=== PATIENT | female | born 1950 | race Caucasian/White ===

== ENCOUNTER → 2017-03-25 | Outpatient (CLI) | payer OTHER, BC ==
[~2017-03-25] MED LIST: ALBU1AER9 INH; ALEN1TAB21 PO; HYDR-5688 PO; MULT-506 PO; VITAMIN D PO
--- NOTE | 2017-03-25 12:57 | MAMMOGRAPHY REPORT ---
BILATERAL DIGITAL SCREENING MAMMOGRAM WITH CAD: 03/25/2017 CLINICAL HISTORY: Routine screening. Patient has no complaints. TECHNIQUE: Bilateral CC and MLO views were obtained. Current study was also evaluated with a Comput er Aided Detection (CAD) system. COMPARISON: Comparison is made to exams dated: 03/21/2016 mammogram, 03/07/2015 mammogram, 03/07/2015 ul trasound, 02/20/2015 mammogram, 12/29/2013 mammogram, and 12/22/2012 mammogram - [facility]. BREAST COMPOSITION: The tissue of both breasts is heterogeneously dense, which may obscure small ma sses. FINDINGS: There is a 8mm nodular asymmetry in the superior middle one third of the left breast, onl y seen on the MLO view, for which additional spot compression tomosynthesis views and possibly ultra sound are recommended. A 6 mm focal asymmetry in the posterior retroareolar right breast is increas ingly conspicuous. Although it could represent normal overlapping fibroglandular tissue, additional spot compression tomosynthesis views and possibly ultrasound are recommended. There are scattered benign round benign calcifications in the breasts. Mild vascular calcification. No other suspicious mass, architectural distortion or cluster of microcalcifications is seen bilate rally. IMPRESSION: ACR BI-RADS CATEGORY 0: INCOMPLETE EVALUATION: NEED ADDITIONAL IMAGING EVALUATION The bilateral asymmetries need additional imaging evaluation. The patient will be called to schedule an appointment. Approximately 10% of breast cancers are not detected with mammography. A negative mammographic repor t should not delay biopsy if a clinically suggestive mass is present. Magdalene Quinones M.D. ay/:03/25/2017 08:08:57 Fax Machine Operator: Rosetta Collazo RT(R)(M), [facility] letter sent: Addl Imaging 0 BI-RADS Code: ACR BI-RADS Category 0: Incomplete Evaluation: Need Additional Imaging Evaluation
== END | disposition home or self-care (01) ==
LOC: C.MAMM 07:36
PROVIDERS: ATTEND Obstetrics & Gynecology
DX: Z12.31 Encounter for screening mammogram for malignant neoplasm of breast (principal); N64.9 Disorder of breast, unspecified

== ENCOUNTER → 2017-04-01 | Outpatient (CLI) | payer OTHER, BC ==
--- NOTE | 2017-04-01 15:47 | MAMMOGRAPHY REPORT ---
BILATERAL DIGITAL DIAGNOSTIC MAMMOGRAM TOMOSYNTHESIS AND TARGETED BILATERAL ULTRASOUND: 04/01/2017 CLINICAL HISTORY: Callback from screening mammogram for bilateral asymmetries. TECHNIQUE: Breast tomosynthesis in addition to standard 2D mammography was performed. Spot ashlie enriqueta right CC and MLO 2-D and tomosynthesis images and spot compression left MLO 2-D and tomosynthes is images were obtained. COMPARISON: Comparison is made to exams dated: 03/25/2017 mammogram, 03/21/2016 mammogram, 03/07/2015 m ammogram, 03/07/2015 ultrasound, 02/20/2015 mammogram, and 12/29/2013 mammogram - [facility]. BREAST COMPOSITION: The tissue of both breasts is heterogeneously dense, which may obscure small ma sses. FINDINGS: The previously described nodular asymmetry seen within the right retroareolar/12:00 breas t effaces to a baseline appearance on the additional views, and has the appearance of normal fibrogl andular tissue on the tomosynthesis images. No suspicious mass or architectural distortion is noted in this region on the additional views. The asymmetry within the left superior breast also effaces on the additional views, and has the appearance of normal fibroglandular tissue on the tomosynthesi s images. A circumscribed oval 5 mm mass seen within the left superior breast is stable compared to multiple prior exams including the 2010 exam, and was shown to represent a benign cyst on a prior u ltrasound exam. Targeted ultrasound was performed of the right subareolar/12:00 periareolar breast in the region of the mammographic asymmetry, which shows mild benign duct ectasia without evidence of a mass or other suspicious sonographic abnormality. Targeted ultrasound of the left slightly superior breast in th e region of the other asymmetry demonstrates no suspicious masses or other suspicious sonographic ab normalities. An oval circumscribed anechoic 5 x 4 mm mass is seen within the left breast at 11:30 t o 12:00, 3 cm from the nipple; this corresponds with the stable mammographic mass and is consistent with a benign cyst. IMPRESSION: ACR BI-RADS CATEGORY 2: BENIGN, TARGETED ULTRASOUND ACR BI-RADS CATEGORY 2: BENIGN Bilateral asymmetries efface on the additional views, without corresponding suspicious sonographic a bnormality evident. Findings are benign and compatible with normal fibroglandular tissue. There is no mammographic or targeted sonographic evidence of malignancy. A 1 year screening mammogram is rec ommended. The patient has been verbally notified of the results. Approximately 10% of breast cancers are not detected with mammography. A negative mammographic repor t should not delay biopsy if a clinically suggestive mass is present. Lazara Brian M.D. ah/:04/01/2017 14:03:42 Applied Technologist: Mayra Patel RT(R)(M), [facility] letter sent: Normal 1/2 BI-RADS Code: ACR BI-RADS Category 2: Benign Ultrasound BI-RADS: ACR BI-RADS Category 2: Benign
== END | disposition home or self-care (01) ==
LOC: C.MAMM 13:11
PROVIDERS: ATTEND Obstetrics & Gynecology
DX: N64.89 Other specified disorders of breast (principal)

== ENCOUNTER → 2017-04-02 | Outpatient (CLI) | payer OTHER, BC ==
--- NOTE | 2017-04-02 08:14 | DIAGNOSTIC IMAGING REPORT ---
MRI OF THE RIGHT KNEE WITHOUT CONTRAST CLINICAL HISTORY: Medial right knee pain. Evaluate for meniscal tear. COMPARISON STUDY: None. TECHNIQUE: Utilizing a 1.5 Olga Lidia magnet and dedicated coil, multiplanar, multiecho imaging of the right knee was performed without intravenous or intraarticular contrast. FINDINGS: Alignment of the right knee is anatomic. Extensor mechanism is intact. There is no fracture or suspicious marrow replacement. There is moderate subchondral signal abnormality within the medial aspect of the patella with moderate overlying chondrosis. There is mild chondrosis of the trochlear cartilage. Note is made of mild to moderate chondrosis within the medial compartment and minimal chondrosis within the lateral compartment. There is an oblique tear of the body and posterior horn of the medial meniscus. There is also an oblique tear of the body and posterior horn of the lateral meniscus. No mass or fluid collection is shown. The anterior and posterior cruciate ligaments are intact. The medial collateral ligament and lateral collateral ligament complex are also intact. IMPRESSION: 1. Oblique tear of the body and posterior horn of the medial meniscus. 2. Oblique tear of the body and posterior horn of the lateral meniscus. 3. Mild to moderate chondrosis within the medial and patellofemoral compartments with subchondral signal abnormality within the patella. 4. Intact cruciate and collateral ligaments. Electronically signed by: Rocky Viveros M.D. 04/02/2017 8:13 AM Dictated Date/Time: 04/02/2017 8:08 AM
== END | disposition home or self-care (01) ==
PROVIDERS: ATTEND Orthopaedic Surgery
DX: S83.281A Other tear of lateral meniscus, current injury, right knee, initial encounter (principal); S83.241A Other tear of medial meniscus, current injury, right knee, initial encounter; M25.561 Pain in right knee; M11.261 Other chondrocalcinosis, right knee; X58.XXXA Exposure to other specified factors, initial encounter

== ENCOUNTER → 2017-04-07 | Outpatient (CLI) | payer OTHER, BC | END | disposition home or self-care (01) | LOC: C.CPL 08:47 | PROVIDERS: ATTEND Orthopaedic Surgery | DX: S83.241A Other tear of medial meniscus, current injury, right knee, initial encounter (principal); X50.9XXA Other and unspecified overexertion or strenuous movements or postures, initial encounter; Z01.810 Encounter for preprocedural cardiovascular examination ==

== ENCOUNTER → 2017-04-28 | Day surgery (SDC) | payer OTHER, BC ==
[2017-04-06 12:18] VITALS: Ht 152.4 cm; Wt 58.2 kg
[~2017-04-28] VITALS: Ht 152.4 cm; Wt 58.2 kg
[~2017-04-28] MED LIST changes: +ATROPINE SULFATE 0.1 MG/ML 5ML SYR IV PRN; +BUPIVACAINE 0.5 % 5 MG/1 ML PF 10ML VIAL ONE; +CEFAZOLIN 1000MG/55 ML D5W IV SCH; +EpHEDrine SULFATE 50MG/5ML SYR ONE; +EpHEDrine SULFATE INJ 50 MG/ML AMP IV PRN; +EpINEphrine INJ 1MG/ML AMP 1 MG/ML AMP ONE; +FENTANYL CITRATE INJ 50 MCG/1 ML 2 ML VIAL ONE; +KETOROLAC TROMETHAMINE 30 MG/ML VIAL ONE; +LACTATED RINGER'S 1000ML 1,000 ML IV SCH; +LIDOCAINE HCL 2% 2 ML VIAL (20MG/ML) ONE; +MIDAZOLAM HCL 1 MG/ML 2ML VIAL ONE; +ONDANSETRON INJ 2 MG/ML 2 ML VIAL IV PRN; +ONDANSETRON INJ 2 MG/ML 2 ML VIAL ONE; +OXYCODONE/ACETAMINOPHEN 5-325 TAB PO PRN; +PROPOFOL IV EMULSION 10 MG/ML 20 ML VIAL IV ONE; +ROPIVACAINE 0.5% 5 MG/ML 30 ML VIAL ONE; +SODIUM CHLORIDE 0.9% 1000ML 1,000 ML IV SCH
--- NOTE | 2017-04-28 08:52 | History & Physical Bridge - SC ---
H&P Re-Evaluation Bridge Note: I have examined the patient, reviewed the History & Physical and in the interval since the performance of the History & Physical I have noted the following changes of clinical significance: No changes noted
--- NOTE | 2017-04-28 10:34 | [facility] Post Operative Brief Note ---
Immediate Operative Summary Operative Date Apr 28, 2017. Pre-Operative Diagnosis Right knee medial meniscus tear Post-Operative Diagnosis Same as preop Procedure(s) Performed Right Knee Arthroscopy, Partial Medial Meniscectomy Surgeon Dr. Cowart Professional Nursing Assistant Surgeon(s) Surinder Marvin PA-C Estimated Blood Loss 0 mL Findings ABOVE Specimens None Drains NONE Anesthesia LMA Complication(s) None Disposition Recovery Room / PACU
--- NOTE | 2017-04-28 10:43 | Discharge Instructions-SurgCtr ---
Discharge Instructions Date of Service Apr 28, 2017. Visit Reason for Visit: Right Knee Medial Meniscus Tear, Pain Discharge Discharge Diagnosis / Problem: SAME ABOVE Discharge Goals Goal(s): Decrease discomfort, Improve function Activity Recommendations Activity Limitations: as noted below Lifting Limitations: gradually increase as tolerated Exercise/Sports Limitations: until after follow-up appointment Shower/Bathe: may shower/bathe in 3 days Anesthesia . Post Anesthesia Instructions: If you have had General Anesthesia or IV Sedation: * Do not drive today. * Resume driving when surgeon permits. * Do not make important decisions or sign legal documents today. * Call surgeon for: 1. Temperature elevations greater than 101 degrees F. 2. Uncontrollable pain. 3. Excessive bleeding. 4. Persistent nausea and vomiting. 5. Medication intolerance (nausea, vomiting or rash). * For nausea and vomiting use only clear liquids such as: tea, soda, bouillon until nausea subsides, then gradually increase diet as tolerated. * If you have any concerns or questions, call your surgeon's office. If physician is unavailable and it is an emergency, call 911 or go to the nearest emergency room. . Instructions / Follow-Up Instructions / Follow-Up MEDICATIONS: * Resume previous medications unless instructed otherwise by your surgeon. * Always take pain medication on a full stomach or with food to avoid upset stomach. * Do not drink alcohol or drive while taking narcotics. * Ibuprofen or Tylenol may be taken if narcotic not needed. SPECIAL CARE INSTRUCTIONS: __ None _X_ Keep extremity elevated and iced x 48 hours; apply ice 20-30 minutes 8-10 times/day. May remove at night. __ Crutches __ May discard when able __ Brace/Post-op shoe __ 24 hrs/day __ Remove at night _X_ Dressing __ Maintain until seen in office, may shower with plastic over site _X_ Remove dressings in 24-48 hours and then may shower _X_ Cover incisions with band-aids after showering __ Do not remove steri-strips Call physician if chills or temperature rises above 102 degrees or pain unrelieved by prescribed pain medications. Office [phone] Diet Recommendations Home Diet: resume previous diet Procedures Procedures Performed: Right Knee Arthroscopy, Partial Medial Meniscectomy Pending Studies Studies pending at discharge: no Medical Emergencies . Who to Call and When: Medical Emergencies: If at any time you feel your situation is an emergency, please call 911 immediately. . Non-Emergent Contact Non-Emergency issues call your: Primary Care Provider . . "Provider Documentation" section prepared by Surinder Marvin. .
[2017-04-28] MEDS: FENTANYL CITRATE INJ 50 MCG/1 ML 2 ML VIAL IV PRN ×2 (11:08→11:18)
[2017-04-28 11:55] VITALS: TEMP 36.5
--- NOTE | 2017-04-28 12:20 | Anesthesia Progress Nt - [facility] ---
Anesthesia Post Op Note Date & Time Apr 28, 2017 at 12:20 Vital Signs Pain Intensity: 3.0 Vital Signs Past 12 Hours Date Time Temp Pulse Resp B/P (MAP) Pulse Ox O2 Delivery O2 Flow Rate FiO2 04/28/17 12:15 71 16 111/72 (85) 97 Room Air 04/28/17 11:55 36.5 56 16 106/64 (78) 96 Room Air 04/28/17 11:41 106/60 04/28/17 11:38 37.0 56 16 106/60 96 Room Air 04/28/17 11:37 58 16 04/28/17 11:37 60 16 95 04/28/17 11:36 105/58 04/28/17 11:32 62 14 04/28/17 11:32 59 14 95 04/28/17 11:31 103/57 04/28/17 11:27 56 17 04/28/17 11:27 60 17 90 04/28/17 11:26 91/61 04/28/17 11:22 65 9 96 04/28/17 11:22 60 9 04/28/17 11:21 107/55 04/28/17 11:17 49 14 04/28/17 11:17 48 14 96 04/28/17 11:16 104/58 04/28/17 11:12 73 17 04/28/17 11:12 75 17 94 04/28/17 11:11 102/65 04/28/17 11:07 61 20 04/28/17 11:07 61 20 95 04/28/17 11:06 104/60 04/28/17 11:02 64 14 94 04/28/17 11:02 63 14 04/28/17 11:01 104/65 04/28/17 10:57 65 14 98 04/28/17 10:57 69 14 04/28/17 10:56 114/64 04/28/17 10:52 78 21 100 04/28/17 10:52 77 21 04/28/17 10:51 94/62 04/28/17 10:47 72 16 100 04/28/17 10:47 68 16 04/28/17 10:46 115/65 04/28/17 10:43 98/52 04/28/17 10:42 62 100 04/28/17 10:42 62 04/28/17 10:42 36.4 59 10 98/52 100 Diffusion Mask 6 04/28/17 08:37 36.4 66 22 122/78 (93) 99 Room Air Notes Mental Status: alert / awake / arousable, participated in evaluation Pt Amnestic to Procedure: Yes Nausea / Vomiting: adequately controlled Pain: adequately controlled Airway Patency, RR, SpO2: stable & adequate BP & HR: stable & adequate Hydration State: stable & adequate Anesthetic Complications: no major complications apparent
[2017-04-28 12:34] VITALS: BP 105/66; PULSE 63; O2SAT 96
--- NOTE | 2017-04-30 07:42 | OPERATIVE REPORT ---
DATE OF SURGERY: 04/28/17 PREOPERATIVE DIAGNOSES: 1. Medial meniscus tear, right knee. 2. 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 POSTOPERATIVE DIAGNOSES: 1. Medial meniscus tear, right knee. 2. 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 3. Lateral meniscus tear. PROCEDURE: 1. Right knee arthroscopy. 2. Partial medial meniscectomy. 3. Chondroplasty medial femoral condyle. 4. Small lateral meniscectomy. SURGEON: Dr. Cowart. RAILROAD WATCHMAN: Surinder Marvin PA-C ANESTHESIOLOGIST: Dr. Antunez. ANESTHESIA: LMA. DRAINS: None. COMPLICATIONS: None. CONDITION: The patient tolerated the procedure well and returned to the recovery room in apparent satisfactory condition. INDICATIONS FOR SURGERY: Nikia is a 66-year-old female who has had chronic right knee pain secondary to an injury consistent with meniscus tear. Physical examination, history, and MRI were consistent with that. We went over treatment options after she failed conservative care and elected to proceed with surgery. Procedure, expected outcomes, side effects, and risks were all explained in detail. DESCRIPTION OF PROCEDURE: Patient was to the OR at which time she was placed supine on the table and put to sleep by anesthesia department. Examination of the right knee was performed. Ligamentous call was stable. Went ahead and prepped and draped in usual sterile fashion. We began arthroscopic examination in the anteromedial and anterolateral portals. We found a flap tear of the posterior horn of the medial meniscus with some fraying of the inner edge of it also. We came in upbiting scissors and a full radius resector and trimmed it back to a stable rim. There were some degenerative changes to the medial femoral condyle mostly on the flexion surface about the size of a dime, grade 2 changes, and came in with the shaver and smoothed this down. The ACL was found. We found a small tear of the lateral meniscus. We came in with a shaver and trimmed this back. The articular surfaces looked good. Patellofemoral joint overall had little erosion on the underneath surface of the patella but everything else looked to be in pretty good shape. The knee was then copiously irrigated. All cannulas were removed. Portals were closed with 4-0 nylon sutures. 30 cc of Ropivacaine, 10 mg of Toradol, and 1 cc of epinephrine were placed in the knee joint. Placed in sterile dressing of Xeroform, 4 x 4, ABD, Sof-Rol, and Florencio bandage and returned back to recovery room in apparent satisfactory condition. SURGICAL FINDINGS: 1. Posterior horn medial meniscus tear. 2. Grade 2 - 2-1/2 DJD medial femoral condyle about the size of a dime of the flexion surface. 3. Small lateral meniscus tear.
== END | disposition home or self-care (01) ==
LOC: X.SURG 08:28
PROVIDERS: ATTEND Orthopaedic Surgery
DX: S83.241A Other tear of medial meniscus, current injury, right knee, initial encounter (principal); S83.281A Other tear of lateral meniscus, current injury, right knee, initial encounter; X58.XXXA Exposure to other specified factors, initial encounter

== ENCOUNTER → 2017-05-19 | Outpatient (CLI) | payer OTHER, BC ==
[~2017-05-19] MED LIST changes: -ATROPINE SULFATE 0.1 MG/ML 5ML SYR IV PRN; -BUPIVACAINE 0.5 % 5 MG/1 ML PF 10ML VIAL ONE; -CEFAZOLIN 1000MG/55 ML D5W IV SCH; -EpHEDrine SULFATE 50MG/5ML SYR ONE; -EpHEDrine SULFATE INJ 50 MG/ML AMP IV PRN; -EpINEphrine INJ 1MG/ML AMP 1 MG/ML AMP ONE; -FENTANYL CITRATE INJ 50 MCG/1 ML 2 ML VIAL ONE; -KETOROLAC TROMETHAMINE 30 MG/ML VIAL ONE; -LACTATED RINGER'S 1000ML 1,000 ML IV SCH; -LIDOCAINE HCL 2% 2 ML VIAL (20MG/ML) ONE; -MIDAZOLAM HCL 1 MG/ML 2ML VIAL ONE; -ONDANSETRON INJ 2 MG/ML 2 ML VIAL IV PRN; -ONDANSETRON INJ 2 MG/ML 2 ML VIAL ONE; -OXYCODONE/ACETAMINOPHEN 5-325 TAB PO PRN; -PROPOFOL IV EMULSION 10 MG/ML 20 ML VIAL IV ONE; -ROPIVACAINE 0.5% 5 MG/ML 30 ML VIAL ONE; -SODIUM CHLORIDE 0.9% 1000ML 1,000 ML IV SCH
[2017-05-19 11:04] LABS: BASO % 0.4 %; BASO ABS # 0.02 K/uL (0-0.2); COMPLETE YES; EOS % 2.1 %; HEMATOCRIT 42.4 % (37-47); IG% 0.2 %; LYMPH % 44.1 %; MEAN CELL VOLUME 95.9 fL (80-100); MEAN CORPUSCULAR HEMOGLOBIN 31.7 pg (25-34); MEAN PLATELET VOLUME 9.5 fL (7.4-10.4); NEUT % 47.2 %; PLATELET COUNT 233 K/uL (130-400); RED BLOOD COUNT 4.42 M/uL (4.2-5.4); WHITE BLOOD COUNT 5.21 K/uL (4.8-10.8)
[2017-05-19 11:14] LABS: ALT/SGPT 41 U/L (12-78); AST/SGOT 34 U/L (15-37); BLOOD UREA NITROGEN 23 mg/dl (7-18); BUN/CREATININE RATIO 30.3 (10-20); CALCIUM 9.1 mg/dl (8.5-10.1); CARBON DIOXIDE 28 mmol/L (21-32); CHLORIDE 109 mmol/L (98-107); CREATININE 0.76 mg/dl (0.60-1.20); GLUCOSE 96 mg/dl (70-99); POTASSIUM 4.2 mmol/L (3.5-5.1); SODIUM 140 mmol/L (136-145)
[2017-05-19 11:16] LABS: ALB/GLOB RATIO 1.1 (0.9-2); ALKALINE PHOSPHATASE 93 U/L (45-117)
[2017-05-19 11:26] LABS: URINE APPEARANCE CLEAR (CLEAR); URINE BILIRUBIN NEG (NEG); URINE COLOR YELLOW; URINE EPITHELIAL CELL AUTO 20-30 /lpf (0-5); URINE NITRITE NEG (NEG); URINE PH 5.5 (4.5-7.5); URINE SPECIFIC GRAVITY 1.023 (1.000-1.030); UROBILINOGEN NEG (NEG); ZZUR CULT IF INDIC CLEAN CATCH NO
[2017-05-19 11:28] LABS: MANUAL MICROSCOPIC REQUIRED? NO; REVIEW REQ? NO
== END | disposition home or self-care (01) ==
LOC: C.LABBC 08:23
PROVIDERS: ATTEND Internal Medicine
DX: I35.1 Nonrheumatic aortic (valve) insufficiency (principal); M81.0 Age-related osteoporosis without current pathological fracture

== ENCOUNTER → 2017-12-10 | Outpatient (CLI) | payer OTHER, BC ==
[~2017-12-10] MED LIST changes: -HYDR-5688 PO
--- NOTE | 2017-12-10 15:38 | DIAGNOSTIC IMAGING REPORT ---
CHEST 2 VIEWS ROUTINE HISTORY: 67 years-old Female R09.89 Lung [id number] Shortness of [id number] Productive cou acute shortness of breath with productive cough COMPARISON: Chest radiograph 08/09/2013, 09/10/2010, CTA of the chest 09/10/2010 TECHNIQUE: PA and lateral views of the chest FINDINGS: Cardiomediastinal and hilar silhouettes are within normal limits. Atherosclerosis of the aorta. Lungs are hyperinflated with diaphragmatic flattening. 8 mm ill-defined opacity projects over the right lung apex on the frontal view only. Lungs are otherwise clear and unremarkable without pneumothorax, pleural effusion, focal airspace consolidation or overt pulmonary edema. Sigmoidal scoliosis of the thoracolumbar spine. IMPRESSION: 1. No acute process of the chest. 2. 8 mm opacity projecting over the right upper lobe on the frontal view only is indeterminate and likely secondary to overlying composite tissue densities with adjacent lung markings and anterior right first rib. A pulmonary nodule could have a similar appearance. The above report was generated using voice recognition software. It may contain grammatical, syntax or spelling errors. Electronically signed by: Delroy Venegas M.D. 12/10/2017 3:37 PM Dictated Date/Time: 12/10/2017 3:32 PM
== END | disposition home or self-care (01) ==
LOC: C.RAD1850 15:18
PROVIDERS: ATTEND Internal Medicine
DX: R09.89 Other specified symptoms and signs involving the circulatory and respiratory systems (principal); R06.02 Shortness of breath; R05 Cough

== ENCOUNTER → 2018-02-15 | Outpatient (CLI) | payer OTHER, BC ==
[~2018-02-15] MED LIST changes: -ALEN1TAB21 PO; +ALEN35TA42 PO
--- NOTE | 2018-02-15 09:56 | DIAGNOSTIC IMAGING REPORT ---
(CHEST) THORAX WITHOUT CLINICAL HISTORY: PULMONARY NODULE ABNORMAL CHEST X RAY COMPARISON STUDY: Chest x-ray dated December 10, 2017, chest CT performed September 2010 CT DOSE: 164.18 mGy.cm TECHNIQUE: CT of the thorax was performed from the thoracic inlet to the lung bases. Images are reviewed in the axial, sagittal, and coronal planes. IV contrast was not administered for this examination. A dose lowering technique was utilized adhering to the principles of ALARA. FINDINGS: Thyroid: Imaged portions of the thyroid gland are normal in appearance. Thoracic aorta: There is mild ectasia of the ascending thoracic aorta which measures 38 mm. Heart: There is borderline cardiac enlargement Lungs and pleural spaces: No pleural effusions are visualized. There are dependent atelectatic changes present. No suspicious bony masses are visualized. CT scanning fails to confirm the presence of an 8 mm right apical pulmonary nodule. Mediastinum: There is no mediastinal lymphadenopathy. Digna: There is no evidence of pathologic hilar adenopathy given the limitations of a noncontrast study Axilla: There is no evidence of pathologic axillary lymphadenopathy Upper abdomen: There is a 4 mm left renal calculus. Skeletal structures: There are no lytic or blastic osseous lesions. IMPRESSION: 1. No suspicious pulmonary masses. CT scanning fails to confirm the presence of a right upper lobe pulmonary nodule 2. No evidence of pathologic adenopathy on this noncontrast study 3. Left-sided nephrolithiasis Electronically signed by: Hector Stevenson M.D. 02/15/2018 9:55 AM Dictated Date/Time: 02/15/2018 9:50 AM
== END | disposition home or self-care (01) ==
LOC: C.CTS 09:41
PROVIDERS: ATTEND Internal Medicine
DX: R93.8 Abnormal findings on diagnostic imaging of other specified body structures (principal)

== ENCOUNTER 2018-03-12 07:34 | Emergency (ER) | payer OTHER, BC ==
[~2018-03-12] VITALS: Ht 152.4 cm; Wt 60.9 kg
[2018-03-12 07:39] VITALS: BP 120/80; PULSE 66; TEMP 36.4; O2SAT 96; Ht 152.4 cm; Wt 60.9 kg
[2018-03-12] MEDS ORDERED: CEPHALEXIN MONOHYDRATE 250 MG CAP PO STA (07:52)
[2018-03-12] MEDS ORDERED: VNTHFA/IN INH (07:57)
[2018-03-12] MEDS ORDERED: CHOL1CAP PO (07:57)
[2018-03-12] MEDS ORDERED: CEPH500C PO (07:58)
--- NOTE | 2018-03-12 08:43 | EMERGENCY ROOM VISIT NOTE ---
History Report prepared by Gaby: Shantell Barrera Under the Supervision of: Dr. Jigar Griggs M.D. First contact with patient: 07:43 Chief Complaint: BITE Stated Complaint: SWELLING HAND/FOREARM FROM A BITE/STING? History of Present Illness The patient is a 67 year old female who presents to the Emergency Room with complaints of an episode of a bite occurring 20 hours ago. The patient states that she was at [employer] looking at plants when she felt something sting or bite her on her right hand. She states that she never saw whatever did it, but did feel it. She states that it looked like she had a stinger in her palm and her dug it out with a knife. She reports that it is painful more near her wrist. She reports that it has been itching and became swollen. She states that the swelling has started going up her arm this morning. The patient states that she has been taking Benadryl and using Benadryl cream with no relief. She reports that she has even tried wrapping a cold towel around it and holding an ice cube in her hand, but it has continued to worsen. She reports that her skin feels tight when she tries to make a fist. The patient denies fever and chills. The patient believes her tetanus is current. Source of History: patient Onset: 20 hours ago Position: hand (right) Quality: other (bite) Timing: other (episode) Associated Symptoms: No fevers, No chills Note: The patient complains of her arm itching and swelling. Review of Systems See HPI for pertinent positives & negatives. A total of 10 systems reviewed and were otherwise negative. Past Medical & Surgical Medical Problems: (1) Hx of varicose veins Surgical Problems: (1) H/O tubal ligation Family History CVA FH: HTN (hypertension) FH: diabetes mellitus FH: heart disease Social History Smoking Status: Never Smoker Drug Use: none Marital Status: Housing Status: lives with family Occupation Status: retired Current/Historical Medications Scheduled Alendronate Sodium (Alendronate Sodium), 35 MG PO WK Cephalexin Monohydrate (Keflex), 500 MG PO TID Cholecalciferol (Kp Vitamin D), 1,000 UNITS PO DAILY Multivitamin (Multivitamin), 1 TAB PO QAM Scheduled PRN Albuterol Hfa (Ventolin Hfa), 2 PUFFS INH DAILY PRN for Shortness of Breath Allergies Coded Allergies: Sulfamethoxazole w/Trimethoprim (Unverified Allergy, Unknown, RASH, ) Physical Exam Vital Signs Date Time Temp Pulse Resp B/P (MAP) Pulse Ox O2 Delivery O2 Flow Rate FiO2 03/12/18 07:39 36.4 66 20 120/80 96 Room Air Physical Exam GENERAL: Patient is in no acute distress. HEENT: No acute trauma, normocephalic atraumatic, mucous membranes moist, no nasal congestion, no scleral icterus. NECK: No stridor, no adenopathy, no meningismus, trachea is midline. LUNGS: Clear to auscultation bilaterally, no wheeze, no rhonchi, breath sounds equal. HEART: Without murmurs gallops or rubs, regular rate and rhythm. EXTREMITIES: A possible bite to the right mid palm with surrounding erythema extending up the volar wrist. There is some swelling in the same area. Some mild warmth is noted. No evidence for neurovascular compromise. No drainage. No obvious foreign body noted. NEUROLOGIC: Oriented x 3, no acute motor or sensory deficits, no focal weakness. SKIN: No jaundice, no diaphoresis. Medical Decision & Procedures Medications Administered Medications (Trade) Dose Ordered Sig/Fatoumata Route Start Time Stop Time Status Last Admin Dose Admin Cephalexin Monohydrate (Keflex Cap) 500 mg NOW STAT PO 03/12/18 07:52 03/12/18 07:53 DC 03/12/18 07:58 500 MG ED Course 0744: The patient was evaluated in room A10. A complete history and physical exam was performed. I discussed results and discharge instructions: She verbalized understanding and agreement. The patient is ready for discharge. 0752: Ordered Keflex Cap 500 mg PO. Medical Decision Differential diagnoses include insect bite or sting, cellulitis, foreign body, neurovascular compromise, allergic reaction. The patient believes she was bitten or stung yesterday by an insect. A stinger had been present but was removed by her . The patient states that the area itches and is swollen. She is concerned that it is worsening despite the use of cold compresses and some occasional Benadryl. She has not had fever or chills. The patient has a local reaction from what appears to be an insect bite or sting. I also am concerned there may be the start of cellulitis in the same area. The patient will continue the Benadryl on a more regular fashion, cool compresses and elevation have been recommended. The patient will be on Keflex as well. She was given 1 dose here prior to discharge. If worsening, she can return. Medication Reconcilliation Current Medication List: was personally reviewed by me Blood Pressure Screening Patient's blood pressure: Normal blood pressure Blood pressure disposition: Did not require urgent referral Impression Primary Impression: Insect sting Additional Impression: Cellulitis Scribe Attestation The scribe's documentation has been prepared under my direction and personally reviewed by me in its entirety. I confirm that the note above accurately reflects all work, treatment, procedures, and medical decision making performed by me. Departure Information Dispostion Home / Self-Care Prescriptions Cephalexin Monohydrate (Keflex) 500 Mg Cap 500 MG PO TID for 7 Days, #21 CAP Prov: Jigar Griggs M.D. 03/12/18 Referrals Nik Rockwell M.D. (PCP) Forms HOME CARE DOCUMENTATION FORM, IMPORTANT VISIT INFORMATION Patient Instructions My [facility] Additional Instructions benadryl 1-2 tab every 6 hours for next several days ice and elevation to help the swelling use keflex 3x per day for 1 week return for fever or worsening symptoms may use tylenol for pain if needed Problem Qualifiers
== END 2018-03-12 08:04 | disposition home or self-care (01) ==
LOC: C.EDB 07:36 → C.EDA 08:04
DX: S60.561A Insect bite (nonvenomous) of right hand, initial encounter (principal); W57.XXXA Bitten or stung by nonvenomous insect and other nonvenomous arthropods, initial encounter; L03.90 Cellulitis, unspecified

== ENCOUNTER 2019-08-23 06:23 | Inpatient (IN) ==
--- NOTE | 2019-07-13 09:37 | PAT Medication Instructions ---
Medication Instructions Date of Service July 13, 2019 Home Medications cholecalciferol (vitamin D3) 1,000 unit capsule 1,000 units PO QAM multivitamin tablet 1 tab PO QAM oxybutynin chloride ER 10 mg tablet,extended release 24 hr 10 mg PO QAM albuterol sulfate 1 puff INHALATION Q6H PRN biotin 1 cap PO QAM calcium carbonate [Calcium 500] 500 mg PO QAM STOP taking 2 weeks before surgery (or as soon as possible if surgery is within 2 weeks) biotin 1 cap PO QAM DO NOT take the morning of surgery cholecalciferol (vitamin D3) 1,000 unit capsule 1,000 units PO QAM multivitamin tablet 1 tab PO QAM oxybutynin chloride ER 10 mg tablet,extended release 24 hr 10 mg PO QAM calcium carbonate [Calcium 500] 500 mg PO QAM Take morning of surgery With a small sip of water, OTHERWISE NOTHING TO EAT OR DRINK AFTER MIDNIGHT: albuterol sulfate 1 puff INHALATION Q6H PRN (use if needed; please bring with you to hospital day of surgery if possible) Other Notes If you have any questions please call us at [phone] or [phone] or [phone] or [phone]
--- NOTE | 2019-07-14 08:33 | Anesthesiology Consultation ---
Date of Service July 14, 2019 Assessment & Plan (1) Encounter for pre-operative examination: Chart Review Chart Review: Pending: Refer to Additional Notes / Consult section (pending preop testing (labs, EKG)) and Patient seen in Pre Admission Testing Teaching & Discussion Pre-Anesthesia Teaching/Discussion Notes: Instructed NPO after midnight before surgery,except medications with 15 cc of water. Medication instructions provided according to the PAT guidelines. History Surgery Operation Date: 08/23/19 07:00 Proposed Procedures p Right Knee Arthroplasty Uni Compartment versus - Sonny Scott MD s Right Total Knee Replacement - Sonny Scott MD Height/Weight Height: 4 ft 11.5 in Weight: 59.3 kg Allergies Allergy/AdvReac Type Severity Reaction Status Date / Time Bactrim Allergy Unknown RASH Unverified 03/12/18 07:55 sulfamethoxazole Allergy Unknown RASH Verified 07/07/19 10:16 trimethoprim Allergy Unknown RASH Verified 07/07/19 10:16 Iodinated Contrast- Oral and AdvReac Severe rash Verified 07/07/19 10:16 IV Dye Medications Home Medications Medication Instructions Recorded Confirmed Last Taken cholecalciferol (vitamin D3) 1,000 1,000 units PO QAM 09/03/18 07/07/19 Unknown unit capsule multivitamin tablet 1 tab PO QAM 09/03/18 07/07/19 Unknown oxybutynin chloride ER 10 mg 10 mg PO QAM #30 tab 03/25/19 07/07/19 Unknown tablet,extended release 24 hr albuterol sulfate 1 puff INHALATION Q6H PRN 07/07/19 07/07/19 Unknown biotin 1 cap PO QAM 07/07/19 07/07/19 Unknown calcium carbonate [Calcium 500] 500 mg PO QAM 07/07/19 07/07/19 Unknown Past Medical History Medical History Hearing loss B/L ESTEVEZ Aneurysm of aortic arch per records, patient denies- no evidence of aneurysm on CTA 11/2018 [facility] Overactive bladder Osteoporosis Exercise-induced asthma stable Kidney stone Osteoarthritis Scoliosis Exercise / Class Metabolic Activity II 4-5 Yardwork/Stairs/Walk up hill Past Family History Family History Father Myocardial infarction Heart disease Hypertension Pure hypercholesterolemia Diabetes Interstitial lung disease of childhood Mother CHF (congestive heart failure) Brother Acute nephritis Past Surgical History Surgical History H/O varicose vein ligation H/O tubal ligation History of arthroscopy of right knee History of cataract surgery RIGHT/LEFT History of colonoscopy w/ polypectomy Past Anesthesia History No Family Hx of Anesthesia Complications and Other "Slow to wake." No known hx of reintubation. History of PONV No Hx of PONV and No Hx of Motion Sickness Social History Smoking Status: Never smoker Do You Dip or Chew Tobacco: No Hx Alcohol Use: Yes Alcohol type: beer, wine and hard liquor alcohol intake frequency: a few times a month Hx Substance Use: No substance use type: does not use Review of Systems Patient denies chest pain, shortness of breath, dyspnea on exertion, reflux, cough, wheezing, palpitations. Physical Exam Vital Signs VITALS BP 115/72 P 60 TEMP 97.9 SP02 97%RA RESP 16 PHYSICAL Full neck and c-spine range of motion. Full TMJ range of motion. TMD 3 finger breaths Mallampati Score 3 Dentition: intact, crowns on sides, permanent wire behind upper front teeth Lungs: clear throughout to auscultation Cardiac: regular rate and rhythm, no murmurs noted Spine: no obvious deformity Carotid arteries: negative bruit Extremities: no edema Testing Echocardiogram Date: 02/22/19 EF 55-60%. Mild AR. Trace to mild TR. No RWMA. Grade I DD. Cervical Spine Date: 11/24/18 The prevertebral soft tissues are normal. 2 mm of anterolisthesis of C4 on C5 is felt to be arthritic. There are degenerative changes most pronounced at the C5-6 and C6-7 levels. There is mild C5-6 and C6-7 foraminal encroachment due to uncinate spurring. No fractures are visualized. Degenerative changes most pronounced at the C5-6 and C6-7 levels. Other Testing Chest CTA: 11/23/18: No pneumothorax or pleural effusion. No focal airspace consolidation to suggest pneumonia. Minimal bibasilar atelectasis. There are no suspicious pulmonary nodules or masses identified. The central airways appear to be patent. Nonobstructing 4 mm calculus about the superior pole left kidney. No acute process of the imaged upper abdomen. Mild right hemidiaphragmatic elevation. Soft tissues and breast parenchyma appear unremarkable. Degenerative changes of the shoulders and spine. Mild levoscoliosis about the midthoracic spine. Multilevel spondylitic spurring with facet arthrosis and intervertebral disc space narrowing. No acute intrathoracic abnormality identified. Unremarkable CTA of the chest without aneurysm or dissection. Mild cardiomegaly.
[2019-07-14 10:27] LABS: Basophils # (auto) 0.02 K/uL (0-0.2); Basophils % (auto) 0.4 %; Eosinophils # (auto) 0.09 K/uL (0-0.5); Eosinophils % (auto) 1.9 %; Hematocrit (blood only) 39.8 % (37-47); Lymphocytes % (auto) 35.9 %; Mean Corpuscular Hemoglobin 31.7 pg (25-34); Mean Corpuscular Hgb Conc 32.7 g/dL (32-36); Mean Corpuscular Volume 97.1 fL (80-100); Mean Platelet Volume 9.3 fL (7.4-10.4); Monocytes # (auto) 0.44 K/uL (0.11-0.59); Monocytes % (auto) 9.3 %; Neutrophils # (auto) 2.49 K/uL (1.4-6.5); Neutrophils % (auto) 52.5 %; Platelet Count 203 K/uL (130-400); RDW Coefficient of Variation 12.8 % (11.5-14.5); RDW Standard Deviation 45.1 fL (36.4-46.3); White Blood Count 4.74 K/uL (4.8-10.8)
[2019-07-14 10:35] LABS: BUN Creatinine Ratio 23.4 (10-20); Calcium 8.9 mg/dl (8.5-10.1); Creatinine Clr Calc Pharmacy 50.3 ml/min; Est GFR (African American) 81.6; Est GFR (Non-African American) 70.4; Potassium 4.4 mmol/L (3.5-5.1)
[2019-07-14 10:39] LABS: Partial Thromboplastin Ratio 0.9; Partial Thromboplastin Time 24.8 Seconds (21.0-31.0); Prothrombin Time 10.7 Seconds (9.0-12.0)
--- NOTE | 2019-08-19 23:47 | History and Physical Report ---
DATE OF ADMISSION: 08/23/2019 CHIEF COMPLAINT: Persistent right medial knee pain and discomfort. HISTORY OF PRESENT ILLNESS: A 68-year-old white female who presents for followup and treatment of her persistent right medial knee pain. She has had a fairly long history of knee pain and discomfort and had her knee scoped by Dr. Cowart about 2 years ago. It really did not help her too much. She continues to be limited by localized pain in the medial side of her knee. She has been through extensive conservative treatment including various injections as well as oral medicines. She continues to be limited by this pain. It hurts her all the time. The more she walks, the more it hurts. She denies any groin pain. She would like to proceed with definitive treatment. PAST MEDICAL HISTORY: Significant for, 1. Sleep apnea. 2. Arthritis. 3. Kidney stones. PAST SURGICAL HISTORY: Include, 1. Tubal ligation. 2. Cataract surgery. 3. Right knee arthroscopy done on 04/28/2017. ALLERGIES: BACTRIM AND IV CONTRAST DYE. CURRENT MEDICATIONS: 1. Vitamin D. 2. Multivitamin. 3. Calcium. SOCIAL HISTORY: A 68-year-old female. She is . Does not smoke. No significant alcohol intake. FAMILY HISTORY: Noncontributory. REVIEW OF SYTEMS: Negative for diabetes, neurologic problems, vascular problems, or any bleeding disorders. Denies any chest pain or shortness of breath. No history of DVT or PE. No known bleeding problems. PHYSICAL EXAMINATION: GENERAL: Reveals a healthy, pleasant, middle-aged female. She looks to be in good health. HEENT: Benign. NECK: Supple, no lymphadenopathy. LUNGS: Clear to auscultation. HEART: Has a regular rate and rhythm. ABDOMEN: Soft, nontender, nondistended. EXTREMITIES: Grossly neurovascularly intact except as follows. Examination of the right knee reveals the patient ambulates independently. She has got slight varus alignment to her knee. She is tender over the medial joint line. Small knee effusion. Range of motion is 0-125. There is no instability. No pain with hip motion. ACL appears intact. IMAGING DATA: X-rays of the right knee were reviewed. It shows moderately advanced medial compartment DJD. She has got small osteophytes off the medial femoral condyle and medial tibial plateau. Narrowing of her joint space with some joint space remaining. No signs of AVN. MRI was also reviewed. It shows progressive medial compartment DJD compared to previous films. She has got a little bit of marrow edema in the medial tibial plateau. Degenerative changes of the meniscus consistent with a previous partial meniscectomy. ASSESSMENT: A 68-year-old white female 2 years out from right knee arthroscopy with persistent medial knee pain and progressive medial compartment arthritis. She has failed conservative treatment and would like to have more definitive treatment. PLAN: We talked about treatment options. We are going to proceed with a right partial knee replacement. If we get in there and her arthritis is too extensive, we will do a full knee replacement. The risks and benefits of partial and total knee replacement were explained to the patient and include, but not limited to, DVT, PE, , infection, neurological injury, vascular injury, bleeding problem, pain, limited range of motion, stiffness, failure to relieve symptoms, incomplete relief of symptoms, need for further surgery in the future, fracture, leg length inequality, nerve palsy, dislocation, and need for revision surgery. The patient understands and desires to proceed. Informed consent was obtained. As far as discharge plans, she is planning to be discharged to home. I will see her back 2 weeks postop.
[~2019-08-23 06:23] MED LIST changes: +ACETAMINOPHEN 500 MG TAB PO SCH; -ALBU1AER9 INH; -ALEN35TA42 PO; +BUPIVACAINE LIPOSOME/PF 266 MG, BUPIVACAINE/EPINEPHRINE 50 ML, SODIUM CHLORIDE 0.9% 30 ... INFIL SCH; +CEFAZOLIN 2000MG 2,000 MG/15 ML SYR IV SCH; +FAMOTIDINE 20 MG TAB PO SCH; +GABAPENTIN 300 MG CAP PO SCH; +LR 15ML/HR IV SCH; +LR 500ML BOLUS IV SCH; +LR 60ML/HR IV SCH; +METOCLOPRAMIDE HCL 10 MG TABLET PO SCH; -MULT-506 PO; -VITAMIN D PO
[2019-08-23] MEDS ORDERED: TRANEXAMIC ACID 1,000 MG **IV Intra-op IV SCH (06:30)
[2019-08-23] MEDS ORDERED: BUPIVACAINE 0.5 % 5 MG/1 ML PF 10ML VIAL ONE (06:30)
[2019-08-23] MEDS ORDERED: ROPIVACAINE 0.5% 5 MG/ML 30 ML VIAL ONE (06:30)
--- NOTE | 2019-08-23 06:51 | History & Physical Bridge Note ---
Date of Service August 23, 2019 History & Physical Bridge Note I have examined the patient, reviewed the History & Physical and in the interval since the performance of the History & Physical I have noted the following changes of clinical significance: no changes noted
[2019-08-23] MEDS ORDERED: MIDAZOLAM HCL 1 MG/ML 2ML VIAL ONE ×2 (07:21)
[2019-08-23] MEDS ORDERED: HYDROmorphone INJ 1 MG/ML SYRINGE IV PRN (08:23)
[2019-08-23] MEDS ORDERED: PHENYLEPHRINE 100MCG/ML 5ML SYR IV PRN (08:23)
[2019-08-23] MEDS ORDERED: KETOROLAC TROMETHAMINE 15 MG/ML VIAL IV PRN (08:23)
[2019-08-23] MEDS ORDERED: ATROPINE SULFATE 0.1 MG/ML 10ML SYR IV PRN (08:23)
[2019-08-23] MEDS ORDERED: ONDANSETRON INJ 2 MG/ML 2 ML VIAL IV PRN ×2 (08:23→11:53)
[2019-08-23] MEDS ORDERED: ePHEDrine sulfate 50 MG/ML AMP IV PRN (08:23)
[2019-08-23] MEDS ORDERED: SODIUM CHLORIDE 0.9% PF 50 ML VIAL ONE (08:30)
[2019-08-23] MEDS ORDERED: BUPIVACAINE LIPOSOME 1.3% 266 MG/20 ML VIAL ONE (08:30)
[2019-08-23] MEDS ORDERED: BACITRACIN INJ 50,000 UNIT VIAL ONE (08:30)
[2019-08-23] MEDS ORDERED: BUPIVACAINE/EPINEPHRINE 0.25% 1:200,000 30 ML VIAL ONE (08:30)
[2019-08-23] MEDS ORDERED: LIDOCAINE HCL 2% 2 ML VIAL/AMP(20MG/ML) INFIL ONE (08:58)
[2019-08-23] MEDS ORDERED: PROPOFOL IV EMULSION 10 MG/ML 20 ML VIAL IV ONE (08:58)
[2019-08-23] MEDS ORDERED: ONDANSETRON INJ 2 MG/ML 2 ML VIAL ONE (09:10)
--- NOTE | 2019-08-23 10:42 | Post Operative Brief Note ---
PG Immediate Post Op with CF Date of Surgery August 23, 2019 Pre & Post Diagnosis Operation Date: 08/23/19 08:50 Pre-Op Diagnosis: Right Knee Advanced Medial Compartment Degenerative Joint Disease Post-Op Diagnosis: Right Knee Advanced Medial Compartment Degenerative Joint Disease I identified the patient and participated in the time-out.: Yes Procedure Operation Date: 08/23/19 08:50 Actual Procedures p Right Knee Arthroplasty Uni-Compartmental(Right) - Sonny Scott MD Surgeon Sonny Sctot MD Audio Specialist Sal, PAC Estimated Blood Loss 25 Findings Consistent with Post-Op Diagnosis Fluids 1000 cc Specimens Specimen Description: A. Right knee bone and tissue. Drains Vogt Catheter (A 16 Maori vogt catheter was inserted by NEVILLE Riojas, without difficulty, clear yellow urine obtained, output to be monitored by An esthesia.) Anesthesia Type Spinal MAC Complications none Disposition Accompanied Patient To Recovery: No Disposition: Recovery Room
--- NOTE | 2019-08-23 11:49 | XRay Report ---
XR knee RT 2V routine CLINICAL HISTORY: Postoperative evaluation. COMPARISON: Knee radiographs June 16, 2019. FINDINGS: These images demonstrate expected findings following medial compartment right knee arthrop lasty. The hardware is intact. There is no fracture or unexpected radiopaque foreign body. Skin stapl es are present. IMPRESSION: Expected findings following right knee medial compartment arthroplasty. Electronically signed by: Rocky Viveros M.D. 08/23/2019 11:47 AM
--- NOTE | 2019-08-23 11:52 | Operative Report ---
DATE OF OPERATION: 08/23/2019 SURGEON: Sonny Scott MD SPORTS PSYCHOLOGIST: NEVILLE Badillo PREOPERATIVE DIAGNOSIS: Right knee medial compartment degenerative joint disease. POSTOPERATIVE DIAGNOSIS: Right knee medial compartment degenerative joint disease. PROCEDURE PERFORMED: Right knee Biomet [place] mobile bearing partial knee replacement. COMPLICATIONS: None. ESTIMATED BLOOD LOSS: 25 mL. FLUID REPLACEMENT: 1000 mL crystalloid fluid replacement. ANESTHESIA: Spinal with adductor canal block. DRAINS: None. SPECIMENS: Right knee sent for pathology. OPERATIVE INDICATIONS: The patient is a 68-year-old female who has had a several-year history of increasing right knee pain and discomfort. She has been through extensive conservative treatment. She had a right knee scoped by my partner a little over 2 years ago which provided fairly minimal short-term relief. Her symptoms localized in the medial side of her knee. X-rays and MRI showed progressive medial compartment arthritis. She failed conservative treatment and elected to proceed with partial knee replacement. OPERATIVE FINDINGS: Operative findings revealed advanced right knee medial compartment DJD. She did have grade 4 change of the medial femoral condyle and some focal of the medial tibial plateau. Her lateral and patellofemoral compartments were well preserved. A moderate-sized joint effusion. Slight varus deformity to her knee. Small osteophytes off the medial femoral condyle and medial tibial plateau. OPERATIVE IMPLANTS: Operative implants consisted of: 1. Biomet [place] size small femoral component. 2. A Biomet medial right size AA tibial tray. 3. A 3 mm mobile-bearing insert. OPERATIVE PROCEDURE: The patient was taken to the operating room, identified and placed on the operating table in supine position. All contact areas were appropriately padded. IV antibiotics were provided by anesthesia team. A spinal anesthetic and adductor canal block had been provided in the holding area. Davies catheter was placed in sterile fashion. Right thigh tourniquet was then placed and the right lower extremity was then prepped and draped in usual sterile fashion. The right leg was elevated and exsanguinated with an Esmarch and tourniquet was placed at 300 mmHg. An anterior approach of the right knee was then performed through a longitudinal incision beginning at the superior pole of the patella and extending just medial to the tibial tubercle. Sharp dissection was carried through the subcutaneous tissue down to the level of the extensor mechanism. The subcutaneous tissue was mobilized circumferentially. A medial parapatellar arthrotomy incision was made. Some subperiosteal dissection was carried out medially. Great care was taken to protect the medial collateral ligament at all times. The fat pad was resected. I then examined the knee. The lateral and patellofemoral compartments were well preserved. The ACL was intact. She elected to proceed with a partial knee replacement. The MRI cutting guide for the femoral component was then placed over the femur. The holes were drilled for the femoral component. The posterior cutting guide was placed and a posterior cut was made. The 0 spigot was placed and the distal femur was milled. I then resected the medial meniscus. I then placed the tibial guide and fixed it on the proximal tibia. The proximal tibial cut was made. I did remove the guide and then placed the tibial cutting guide and made the transverse cut for the tibial tray. The bone fragment was removed. The tibia was then sized to a size AA. I then trialed the knee. The 3 feeler gauge fit good in flexion and it was difficult to even get the 1 in extension. Therefore, we removed the implants and placed the 3 spigot and milled the distal femur. I then trialed the knee and the 3 insert fit appropriately. I did not feel we needed to resect more bone and the knee felt perfectly balanced. I then prepared the distal femur for the anterior part of the femoral component and used the posterior osteophyte cutting guide to remove the posterior osteophyte. The cement drill was used to create some holes for cement interdigitation of the femur. The tibial tray was then pinned and the toothbrush blade was used to create the defect for the keel of the tibial tray. We then trialed the knee and the 3 insert fit appropriately. I elected to place these implants. All trial implants were removed. The wound was irrigated with copious amounts of pulsatile lavage solution. The patient did receive 1 gram of tranexamic acid. A single batch of [place] G cement was mixed. A Biomet size AA right medial tibial tray was cemented in place followed by the small femoral component. All extraneous cement was removed. I then placed the 3 feeler gauge and brought the knee out into 30 degrees short of full extension until the cement hardened. A final cement check was then performed. I did spend quite a bit of time removing all the cement as it was a fairly significant piece posteriorly. I then irrigated the wound extensively. The permanent 3 insert was placed. Attention was then drawn toward closing. The wound was irrigated with copious amounts of pulsatile lavage solution. I injected locally with 100 mL of a combination of 20 mL of Exparel, 30 mL of normal saline, 50 mL of 0.25% Marcaine with epinephrine. The tourniquet was then let down for a tourniquet time of 73 minutes. Hemostasis was assured using electrocautery. The wound was once again irrigated. The extensor mechanism was then closed with #1 Vicryl suture in [id number] fashion. The extensor mechanism was checked and found to be intact. The subcutaneous tissue was then closed with #2 Dexon suture in a buried interrupted fashion. The skin was closed with skin ramon. Leg was then cleaned, dried and a sterile dressing of Xeroform, 4x4s, sterile cast padding, Florencio bandage were applied. The patient was then transferred to the recovery room in stable condition. The patient tolerated the procedure well with no complications. All needle and sponge counts were correct at the end of the operation. I attest to the content of the Intraoperative Record and any orders documented therein. Any exception s are noted below.
[2019-08-23] MEDS ORDERED: HYDROmorphone INJ 0.5 MG/0.5 ML SYR IV PRN (11:53)
[2019-08-23] MEDS ORDERED: ALUMINUM/MAGNESIUM SUSP 30 ML UDC PO PRN (11:53)
[2019-08-23] MEDS ORDERED: bisacodyL 10 MG SUPP PR PRN (11:53)
[2019-08-23] MEDS ORDERED: SODIUM CHLORIDE 0.9% 1000ML 1,000 ML IV SCH (11:53)
[2019-08-23] MEDS ORDERED: ALBUTEROL HFA 8 GM INHALER INH PRN (11:53)
[2019-08-23] MEDS ORDERED: METOCLOPRAMIDE HCL INJ 5 MG/ML 2 ML VIAL IV PRN (11:53)
[2019-08-23] MEDS ORDERED: MAGNESIUM HYDROXIDE SUSP 30 ML UDC PO PRN (11:53)
[2019-08-23] MEDS ORDERED: NALOXONE HCL 0.4 MG/1 ML VIAL/CARP IV PRN (11:53)
--- NOTE | 2019-08-23 11:53 | Anesthesiology Progress Note ---
Date of Service August 23, 2019 Anesthesia Post Procedure Vital Signs Vital Signs: Temp Pulse Pulse Resp BP Pulse Ox 08/23/19 11:25 36.5 C 77 20 113/62 94 08/23/19 11:15 70 16 100/63 97 08/23/19 11:05 58 L 14 106/66 96 08/23/19 10:55 76 16 118/73 96 08/23/19 10:48 36.0 C L 73 15 98/72 L 98 08/23/19 07:41 36.7 C 51 L 16 139/68 97 Transfer of Care Handoff Completed per policy Notes Mental Status: alert / awake / arousable Patient Amnestic to Procedure: Yes Nausea / Vomiting: adequately controlled Pain: adequately controlled Airway Patency, RR, SpO2: stable & adequate BP & HR: stable & adequate Hydration State: stable & adequate Anesthetic Complications: no major complications apparent
[2019-08-23] MEDS: KETOROLAC TROMETHAMINE 15 MG/ML VIAL IV SCH ×3 (13:38→23:36)
[2019-08-23] MEDS: ACETAMINOPHEN 500 MG TAB PO SCH ×2 (14:01→21:41)
[2019-08-23] MEDS: CEFAZOLIN 1000MG 1,000 MG/7.5 ML SYR IV SCH ×2 (16:37→23:36)
[2019-08-23] MEDS: ASCORBIC ACID 500 MG TAB PO SCH (17:58)
--- NOTE | 2019-08-23 20:00 | Progress Note ---
DATE: 08/23/2019 SUBJECTIVE: A 68-year-old female postop from a right partial knee replacement. She is doing well. Not really having any significant pain yet. No chest pain or shortness of breath. Not feeling dizzy or lightheaded. OBJECTIVE: VITAL SIGNS: Temperature is 36.5. Vital signs stable. GENERAL: Shows a pleasant, middle-aged female. She is sitting up in bed, looks pretty comfortable. EXTREMITIES: Examination of the right leg reveals the leg to be well aligned. Her dressing is clean, dry and intact. She can dorsiflex and plantarflex her foot appropriately. She is neurologically intact. She has got brisk refill. X-RAYS: X-ray of the right knee from recovery room reviewed. It shows a right partial knee replacement. Components looked to be in good position. No signs of problems. ASSESSMENT: A 68-year-old female postop from a right partial knee replacement, doing well. Her pain is controlled. She is neurologically intact. PLAN: 1. DVT prophylaxis including thigh-high TEDs, SCDs, and aspirin twice a day. 2. PT/OT. Weight bear as tolerated. Right total knee protocol. 3. Pain control, doing well with current pain regimen. 4. IV antibiotics x24 hours. 5. Disposition: Plan to discharge to home. She is debating whether to do home health or go to outpatient therapy. Decision is completely up to her.
[2019-08-23] MEDS: SENNA 8.6 MG TAB PO SCH (20:45)
[2019-08-23] MEDS: DOCUSATE SODIUM 100 MG CAP PO SCH (20:46)
[2019-08-23] MEDS: ASPIRIN 81 MG ECTAB PO SCH (20:46)
[2019-08-24] MEDS: ACETAMINOPHEN 500 MG TAB PO SCH ×3 (05:49→21:07)
[2019-08-24] MEDS: KETOROLAC TROMETHAMINE 15 MG/ML VIAL IV SCH ×4 (05:49→23:32)
[2019-08-24] MEDS: ASPIRIN 81 MG ECTAB PO SCH ×2 (08:45→21:06)
[2019-08-24] MEDS: ASCORBIC ACID 500 MG TAB PO SCH ×2 (08:45→18:14)
[2019-08-24] MEDS: DOCUSATE SODIUM 100 MG CAP PO SCH ×2 (08:45→21:06)
[2019-08-24] MEDS: MULTIVITAMIN TAB PO SCH (08:45)
[2019-08-24] MEDS: CHOLECALCIFEROL 1,000 UNITS TAB PO SCH (08:46)
[2019-08-24] MEDS: CALCIUM CARBONATE 1250MG TAB PO SCH (08:53)
[2019-08-24] MEDS ORDERED: NON-FORMULARY MEDICATION (Biotin 1 CAP) PO SCH (09:00)
[2019-08-24] MEDS ORDERED: CALCIUM CARBONATE 1250MG TAB PO SCH (09:00)
[2019-08-24] MEDS ORDERED: MULTIVITAMIN TAB PO SCH (09:00)
[2019-08-24] MEDS: TRAMADOL HCL 50 MG TABLET PO PRN ×2 (10:32→11:45)
--- NOTE | 2019-08-24 12:03 | Progress Note ---
DATE: 08/24/2019 SUBJECTIVE: A 68-year-old white female postop day 1 from a right partial knee replacement. She has done pretty well, but just got done with therapy and feeling kind of ill. Feeling nauseated. No chest pain or shortness of breath. Just feels tired and really worn out and a little lightheaded. OBJECTIVE: VITAL SIGNS: Temperature 36.8. Vital signs stable. GENERAL: Physical examination reveals a pleasant, middle-aged female. She is sitting up on her bedside chair. She clearly looks a little bit uncomfortable. EXTREMITIES: Examination of the right leg reveals the leg to be well aligned. Dressing is clean, dry, and intact. She can do a straight leg raise. She can dorsiflex and plantarflex her foot appropriately. She is neurologically intact. ASSESSMENT: A 68-year-old white female postop day 1 from a right partial knee replacement. She was doing quite well until just recently after therapy. I think she developed a little bit of vasovagal episode. No signs of a heart issue. PLAN: We are going to let her rest in the room here a little bit and see how she does. We will get her up and mobilize her later. If she is doing well, she may be able to go home, but otherwise we will likely keep her overnight to see how she is doing and make sure she is stable. Continue DVT prophylaxis including thigh-high TEDs, SCDs, and aspirin twice a day. She will continue therapy. She can weightbear as tolerated.
[2019-08-24] MEDS: SENNA 8.6 MG TAB PO SCH (21:07)
[2019-08-25] MEDS: KETOROLAC TROMETHAMINE 15 MG/ML VIAL IV SCH (06:04)
[2019-08-25] MEDS: ACETAMINOPHEN 500 MG TAB PO SCH ×2 (06:04→13:48)
[2019-08-25] MEDS: ASPIRIN 81 MG ECTAB PO SCH (08:35)
[2019-08-25] MEDS: ASCORBIC ACID 500 MG TAB PO SCH (08:37)
[2019-08-25] MEDS: DOCUSATE SODIUM 100 MG CAP PO SCH (08:38)
[2019-08-25] MEDS: CHOLECALCIFEROL 1,000 UNITS TAB PO SCH (08:38)
[2019-08-25] MEDS: MULTIVITAMIN TAB PO SCH (08:38)
[2019-08-25] MEDS: CALCIUM CARBONATE 1250MG TAB PO SCH (08:38)
[2019-08-25] MEDS: TRAMADOL HCL 50 MG TABLET PO PRN (09:01)
--- NOTE | 2019-08-25 09:24 | Progress Note ---
DATE: 08/25/2019 SUBJECTIVE: A 68-year-old white female postop day 2 from a right partial knee replacement. Had a really rough day yesterday. Feeling much better today. Pain is moderate but controlled. No chest pain or shortness of breath. No further nausea. She had some emesis yesterday, but none today. OBJECTIVE: VITAL SIGNS: Temperature 36.5. Vital signs stable. GENERAL: Physical examination shows a pleasant, middle-aged female. She is sitting up at her bedside chair, looks comfortable. Looks much better today. Looks back to her baseline. EXTREMITIES: Examination of the right leg reveals the leg to be well aligned. Dressing is clean, dry and intact. She can do a straight leg raise with some effort. She can dorsiflex and plantarflex her foot appropriately. She is neurologically intact. ASSESSMENT: A 68-year-old white female postop day 2 from a right partial knee replacement, doing much better. Had a pretty rough day yesterday, but doing much better today. Her pain is controlled. She is neurologically intact. Nausea is improved. PLAN: 1. DVT prophylaxis including thigh-high TEDs, SCDs, and aspirin twice a day. 2. PT/OT. Weight bear as tolerated. Right total knee protocol. 3. Pain control, doing okay with current pain regimen. 4. Disposition: Plan to discharge to home with some home health likely later today.
--- NOTE | 2019-08-31 15:20 | Discharge Summary ---
DATE OF ADMISSION: 08/23/2019 DATE OF DISCHARGE: 08/25/2019 ADMITTING DIAGNOSIS: Right knee medial compartment degenerative joint disease. SURGERY PERFORMED: Right partial knee replacement. SECONDARY DIAGNOSES: Sleep apnea, arthritis, kidney stones. CONSULTS: None obtained. HISTORY AND PHYSICAL EXAMINATION: Well documented in the patient's chart. HOSPITAL COURSE: The patient was admitted on 08/23/2019, underwent partial knee replacement, tolerated the procedure well. There were no complications. She was transferred to the PACU postoperatively and later to the orthopedic floor for further care. She was given Ancef for antibiotic prophylaxis, EVELYN stockings, SCDs and aspirin for DVT prophylaxis. Vital signs were monitored during hospital stay and remained stable. There were no complications. She did not require any blood transfusions. On postoperative day #1, she does not feel well after physical therapy, feeling nauseated and possible vasovagal episode, but this resolved and she was feeling better the next day. Postoperative day #2, she was tolerating a regular diet, pain was controlled with oral pain medicine. She was participating in physical therapy. On postop day #2, she was discharged home, set up with home health services, given printed discharge instructions as well as new prescriptions for extra strength Tylenol, aspirin and tramadol. Continue her home medications, continue physical therapy, weightbearing as tolerated, EVELYN stockings. Follow up approximately 2 weeks postop or sooner if there are any problems or concerns.
== END 2019-08-25 14:33 | disposition home health service (06) | DRG 470 ==
LOC: ASU 06:23 → 3E 10:46